=== PATIENT | female | born 1940 | race Caucasian/White ===

== ENCOUNTER 2019-03-10 00:49 | Emergency (ER) | payer MEDICARE, SELFPAY ==
[2019-03-10] VITALS (8 sets, daily range): BP systolic 110–159; BP diastolic 62–87; PULSE 64–68; RESP 16–18; TEMP 36.7; O2SAT 96–99; BMI 36.6
--- NOTE | 2019-03-10 00:54 | EKG12_ITS ---
Test Reason : STROKE Blood Pressure : / mmHG Vent. Rate : 066 BPM Atrial Rate : 066 BPM P-R Int : 168 ms QRS Dur : 092 ms QT Int : 404 ms P-R-T Axes : 079 -24 034 degrees QTc Int : 423 ms Normal sinus rhythm Normal ECG Confirmed by PANTERA DUTTON, ARMANI ([id number]), business editor TOD SCHOFIELD ([id number]) on 03/10/2019 2:54:25 PM Referred By: JUWAN Confirmed By:ARMANI MOTT MD
--- NOTE | 2019-03-10 00:54 | CT_ITS ---
We are attempting to reach an attending provider to discuss findings. An addendum with communication details will be sent when the communication is complete. STUDY: CT BRAIN WITHOUT CONTRAST REASON FOR EXAM: Female, 78 years old. Right-sided weakness, unable to speak. RADIATION DOSAGE (If Supplied By Facility): CTDIvol = ( 44.99 ) mGy, DLP = ( 779.24 ) mGycm TECHNIQUE: Transaxial CT imaging of the brain was performed without administration of intravenous contrast material. Individualized dose optimization techniques were used for this CT. COMPARISON: No relevant priors. FINDINGS: Normal soft tissue structures. Normal calvarium. There is mild cerebral atrophy with widening of the extra-axial spaces and ventricular dilatation. There are areas of decreased attenuation within the white matter tracts of the supratentorial brain, consistent with microvascular disease changes. There is small focus of CSF density left basal ganglia measuring approximately 6.4 mm consistent with old lacunar infarct. Remainder of the basal ganglia and thalami are normal. Small areas of CSF attenuation demonstrating and centrum semiovale and periventricular region. Normal brainstem. Normal cerebellum. There is no intracranial hemorrhage. There is high density involving the left middle cerebral artery which could represent very early dense MCA sign/early acute infarct. Normal visualized paranasal sinuses. CT/Brain/Head without Contrast IMPRESSION: Dense left middle cerebral artery which may indicate very early sign of acute stroke in the MCA distribution. If indicated, follow-up with MRI may further characterize this finding. No acute intracranial hemorrhage. Underlying atrophy along with microvascular angiopathic white matter disease. Electronically Signed: Shabnam Calvillo MD at 1:19 EST , Service support ,
--- NOTE | 2019-03-10 00:59 | ED.RN ---
NO OLD EKGS IN MUSE
[2019-03-10 01:12] LABS: Absolute Lymphocyte Count 3.85 X10^3/uL (0.83-4.51); Absolute Neutrophil Count 3.8 X10^3/uL (2.0-7.7); Basophil# 0.04 X10^3/uL; Basophil% 0.5 % (0-1); Eosinophil# 0.33 X10^3/uL; Eosinophils% 3.8 % (0-5); Hematocrit 38.2 % (37-47); Hemoglobin 13.1 g/dL (12.0-15.0); Lymphocyte # 3.85 X10^3/ul (4.0); Lymphocyte % 43.9 % (19-41); Mean Corp Hgb Conc 34.3 g/dL (32-36); Mean Corpuscular Volume 93.4 fL (81-99); Mean Platelet Vol. 10.2 fl (6.2-12.0); Monocyte# 0.68 X10^3/uL; Monocyte% 7.8 % (0-10); NRBC Flagged by Analyzer 0 % (0-5); Neutrophil # 3.84 X10^3/uL (2.7-7.7); Neutrophil % 43.8 % (47-70); Platelet Count 200 K/mm3 (150-450); RBC Distribution Width CV 12.5 % (11.6-14.6); Red Blood Count 4.09 M/mm3 (4.2-5.4); White Blood Count 8.8 K/mm3 (4.4-11.0)
[2019-03-10 01:16] LABS: International Normalized Ratio 0.9; Partial Thromboplast Time 26.1 Seconds (24.1-36.2); Prothrombin Time (Protime)PT. 12.3 SECONDS (11.7-14.9)
[2019-03-10 01:26] LABS: Anion Gap 6 (5-15); BUN 20 mg/dL (7-18); BUN/Creat Ratio 21.4 RATIO (10-20); Calcium,Total 9.2 mg/dL (8.5-10.1); Chloride 107 mmol/L (98-107); Creatinine, Serum 0.93 mg/dL (0.55-1.02); EST Glomerular Filtration Rate 62 mL/min (>60); Est Glom Filt Rate - Afr Amer 75 mL/min (>60); Glucose 129 mg/dL (74-106); Sodium Level 142 mmol/L (136-145)
--- NOTE | 2019-03-10 01:38 | ED.VIS.GEN ---
History of Present Illness Chief Complaint: Neuro S/Sx Informant: Patient, Family, Automotive Technician Narrative: Patient here with family member. According to family member the patient's called paramedics at 12:50 AM due to an acute stroke symptoms. Patient had acute onset of complete aphasia and right lower facial droop as well as confusion. No history of stroke. Patient stated no history of blood thinners. According to her medication list at [facility] there is no blood thinners recently filled. The patient is able to follow commands and answer questions with shaking her head but cannot speak. She has never had a stroke before. The patient has no contraindications to TPA at this time. She had no recent surgeries or trauma. She does have history of coronary artery disease and glaucoma as well as diabetes. She has a normal blood sugar for the paramedics. She is been able to move her arms and legs normally. Past Medical History - Allergies and Home Meds Allergies/Adverse Reactions: Allergies No Known Allergies Allergy (Verified 03/10/19 01:08) Primary Care Physician: Care Physician,No Primary [NON-STAFF] - Prior records reviewed: Yes Past Medical History: - - Diabetes, glaucoma, coronary artery disease Surgical History: - - Heart surgery Lives: With Family Smoking Status: Former smoker Alcohol: None Drugs: None Review of Systems General: Denies: Chills, Fever, Sweats Eyes: Denies: Visual changes - bilaterally, Diplopia ENT: Denies: Rhinorrhea, Sore throat Cardiovascular: Denies: Chest pain, Palpitations Respiratory: Denies: Dyspnea, Cough, Dyspnea on exertion Gastrointestinal: Denies: Abdominal pain, Nausea, Vomiting, Diarrhea, Melena, Hematochezia Genitourinary: Denies: Dysuria, Hematuria, Frequency Musculoskeletal: Denies: Back pain, Extremity Pain Skin: Denies: Rash, Wounds Neurological: Reports: Weakness, - - Not able to speak, right lower facial droop. Denies: Headache, Parasthesia, Numbness Physical Exam Vital Signs/Narrative: Vital Signs Temp Pulse Resp BP Pulse Ox 03/10/19 01:13 68 16 125/87 H 98 03/10/19 01:08 98.1 F 03/10/19 00:54 98.1 F 68 16 110/85 H 96 General: Well nourished, Well developed, No Acute Distress Head: Normocephalic, Atraumatic Eyes: Perrl, EOMI ENT: Moist mucous membranes, No rhinorrhea Neck: Supple, Nontender Cardiovascular: Regular rate, Regular rhythm, No murmurs Respiratory: No distress, CTA bilaterally, Chest nontender Abdomen: Soft, Nontender, Nondistended, Normal bowel sounds Back: Nontender, Normal Inspection Extremities: Nontender, No edema Skin: Normal color, No rash Neurological: Alert, - - Patient follows all commands. She does not appear lethargic. She has right lower facial droop that is significant. Patient has complete aphasia. She is able to answer questions with yes and no by nodding her head without verbalizing. She follows normal with [id number]. She is able to follow my finger with her eyes. She is unable to speak.. Negative for: Oriented x3, Cranial nerves II-XII grossly intact, Normal Strength, Normal Sensation Psychological: Normal affect, Normal Mood Diagnostic/Tx/Re-eval - Medical Decision Making EKG obtained shows sinus rhythm with no acute infarct. Rate is 66.. Lab work shows no major abnormalities. Platelets show no abnormality. Troponin negative. BUN is 20. CBC is normal. CT head shows evidence of an acute left-sided infarct with hyperdense sign noted. No hemorrhage. The patient meets criteria for TPA. Neurology evaluated the patient in the emergency department from [facility]. They concurred that the patient is a candidate for TPA. TPA was ordered will be given. [facility] stated the patient could be transferred there emergently. The patient would like the patient to be transferred to [facility]. [facility] does not have beds. Family would like the patient then to go to [facility]. Upon awaiting [facility] to respond the patient then stated that they would go to [facility]. We were able to get [facility] to accept the patient. [facility] is not flying. The patient will go by ground. Discussed doing a CT angio with [facility] stroke neurologist who stated hold off on this time and that they would do it at [facility] - Critical Care Time Critical care time (excluding procedures): 30-74 minutes ED Disposition - Plan for ED Patient: Disposition: [facility] Diagnosis: Stroke Referrals: Care Physician,No Primary [NON-STAFF] -
[2019-03-10] MEDS: 0.9% Normal Saline 1,000 ML 100 ML IV (01:46)
--- NOTE | 2019-03-10 01:50 | ED.RN ---
ACCEPTING DR RICHARD SORIA
== END 2019-03-10 02:37 | disposition short-term general hospital (02) ==
PROVIDERS: Emergency Provider Emergency Medicine; Family Provider Family Medicine; PCP Family Medicine
DX: I63.9 Cerebral infarction, unspecified (principal); R47.01 Aphasia; R29.810 Facial weakness; I25.10 Atherosclerotic heart disease of native coronary artery without angina pectoris; E11.9 Type 2 diabetes mellitus without complications; H40.9 Unspecified glaucoma; Z87.891 Personal history of nicotine dependence
CPT/HCPCS: 51702; 70450; 80048; 84484; 85025; 85610; 85730; 93005; 96365; 96376; 99285; J2997; J7030; A4216

== ENCOUNTER 2019-03-13 19:05 | Inpatient (IN) | payer MEDICARE, SELFPAY ==
[2019-03-10 01:08] VITALS: BMI 36.6
[2019-03-13 19:56] VITALS: BP 121/72; PULSE 67; RESP 18; TEMP 36.6; O2SAT 97; BMI 29.1
[2019-03-13 21:11] LABS: Bedside Glucose 118 mg/dL (70-110)
[2019-03-13] MEDS: Atorvastatin Calcium 10 MG Tablet PO (21:36)
[2019-03-14 05:59] LABS: Hematocrit 36.2 % (37-47); Hemoglobin 12.6 g/dL (12.0-15.0); Mean Corp Hgb Conc 34.8 g/dL (32-36); Mean Corpuscular Hgb 31.7 pg (27.0-32.0); Mean Corpuscular Volume 91.2 fL (81-99); Mean Platelet Vol. 9.9 fl (6.2-12.0); Platelet Count 175 K/mm3 (150-450); RBC Distribution Width CV 12.2 % (11.6-14.6); RBC Distribution Width SD 40.2 fl (35.1-43.9); Red Blood Count 3.97 M/mm3 (4.2-5.4); White Blood Count 6.7 K/mm3 (4.4-11.0)
[2019-03-14 06:15] LABS: AST(SGOT) 18 U/L (15-37); Alanine Aminotransfer ALT/SGPT 19 U/L (13-56); Albumin, Serum 3.4 g/dL (3.2-5.0); Alkaline Phosphatase 48 U/L (45-117); Anion Gap 6 (5-15); BUN 14 mg/dL (7-18); BUN/Creat Ratio 16.9 RATIO (10-20); Calcium,Total 8.6 mg/dL (8.5-10.1); Chloride 108 mmol/L (98-107); Creatinine, Serum 0.83 mg/dL (0.55-1.02); EST Glomerular Filtration Rate 71 mL/min (>60); Est Glom Filt Rate - Afr Amer 86 mL/min (>60); Estimated Creatinine Clearance 58.17 ml/min; Globulin 3.4 g/dL (2.2-4.2); Glucose 121 mg/dL (74-106); Potassium 3.5 mmol/L (3.5-5.1); Protein, Total 6.8 g/dL (6.4-8.2); Sodium Level 140 mmol/L (136-145)
[2019-03-14 06:26] LABS: Bedside Glucose 118 mg/dL (70-110)
--- NOTE | 2019-03-14 06:44 | HP.PCM_ITS ---
Problem List (1) CVA (cerebral vascular accident) Status: Acute Qualifiers: Laterality of affected vessel: left Comment: Left MCA territory ischemic infarcts 03/10/19 (2) Debility Status: Acute (3) CAD (coronary artery disease) Status: Chronic Qualifiers: Coronary Disease-Associated Artery/Lesion type: [place] artery (4) Type 2 diabetes mellitus Status: Chronic (5) Tobacco dependence in remission Status: Chronic (6) History of cervical cancer Status: Chronic (7) History of coronary artery bypass graft Status: Chronic (8) Carotid stenosis, bilateral Status: Chronic Comment: both ICA's are 100% occluded (9) Low HDL (under 40) Status: Chronic (10) Glaucoma Status: Chronic History of Present Illness Date of Admission: 03/13/19 Chief Complaint: debility secondary to CVA in the L MCA territory on 03/10/19 The patient is a 78 year old F with a PMH of DM II, dyslipidemia, CAD, hx of CABG, tobacco dependence in remission, glaucoma, history of cervical cancer, low HDL and 100% bilateral internal carotid artery stenosis who presented to the emergency department at [facility] on 03/10/2019 with aphasia and R lower face droop. Stat CT brain showed dense left middle cerebral artery possibly indicating very early sign of acute CVA in the MCA distribution. There was no intracranial hemorrhage. STAT consult was obtained with neurology at [facility] and the patient was administered TPA. She was then transferred to [facility] for ongoing care. MRI at [facility] showed nonhemorrhagic acute-subacute left MCA territory infarcts. She was started on aspirin 81 mg daily for antithrombotic therapy. Lipid panel showed normal triglycerides, low HDL at 31 and an LDL of 68. Anticoagulation therapy was not indicated. CTA showed 100% occlusion of both internal carotid arteries with collateral circulation. Over the course of her stay at [facility] her symptoms largely improved and her NIH score on 03/13/2019 was 4. She was transferred to the IPRU at [facility] on 03/13/19 for 3 hours of therapy daily with a goal of returning home at or near her prior level of independence/function. All events of the past 24 hours of been reviewed. She is afebrile. Blood pressure is well controlled and the heart rate is within normal limits. She is maintaining appropriate oxygen saturation on room air without tachypnea. All lab was personally reviewed. CBC is within normal limits. BMP is unremarkable. Hemoglobin A1c is only 5.4. Blood sugars have been very well controlled on metformin 850 mg twice daily since arrival at [facility]. Past Medical History Past Medical History (Chronic Problems): Chronic Problems CAD (coronary artery disease) (Chronic) Type 2 diabetes mellitus (Chronic) Tobacco dependence in remission (Chronic) History of cervical cancer (Chronic) History of coronary artery bypass graft (Chronic) Carotid stenosis, bilateral (Chronic) both ICA's are 100% occluded Low HDL (under 40) (Chronic) Glaucoma (Chronic) Allergies No Known Allergies Allergy (Verified 03/10/19 01:08) Home Medications: Ambulatory Orders Medication Instructions Recorded Atenolol [Tenormin (beta carmelo)] 25 mg PO DAILY 03/13/19 Atorvastatin Calcium [Lipitor] 10 mg PO QHS 03/13/19 Fluoxetine HCl 20 mg PO DAILY 03/13/19 Lisinopril 5 mg PO DAILY 03/13/19 Metformin HCl 850 mg PO BIDAC 03/13/19 Pantoprazole Sodium [Protonix] 20 mg PO DAILY 03/13/19 Surgical History: - - CABG Psychiatric History: Depression 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 Denies: Confusion, Difficulty swallowing, Seizures Psychiatric: Denies: Homicidal Ideations, Suicidal Ideations Hematologic/ Lymphatic: Denies: Hx of blood clot Unable to obtain accurate/complete ROS d/t: ROS limited by aphasia...she is able to answer yes and no appropriately VTE Information - Inpt Only VTE Present on Admission: No VTE Mechan Device Prophylaxis: Knee High TIM Hose VTE Pharm Prophylaxis ordered?: Yes Patient Problems: Active and Suspected Problems CVA (cerebral vascular accident) (Acute) Left MCA territory ischemic infarcts 03/10/19 Debility (Acute) - Physical Exam Vitals/I&O's: Vital Signs Temp Pulse Resp BP Pulse Ox 97.8 F 67 18 121/72 H 97 03/13/19 19:56 03/13/19 19:56 03/13/19 19:56 03/13/19 19:56 03/13/19 19:56 Oxygen Delivery Method Room Air Weight: 191 lb 9.307 oz Body Mass Index (BMI) 29.1 Finger Stick Blood Glucose 125 Intake and Output for Last 24 Hours 03/12/19 03/13/19 03/14/19 23:59 23:59 23:59 Output Total 300 / 300 Balance -300 / -300 General: Alert, Cooperative, No apparent distress, Well developed, Well nourished, - - she is unable to tell me the month or year or how old she is due to aphasia HEENT: Atraumatic, PERRLA, EOMI, Normocephalic Oral: Moist Mucosa, No Gingival or Mucosal Lesions/ Ulcerations Neck: Supple, No JVD, No Nodes, No Nuchal Rigidity, Trachea Midline, Carotid Bruits, Bilateral Lungs: Clear to auscultation, Normal air movement, No rhonchi, No wheeze, No rales Cardiovascular: Regular rate, Regular Rhythm, Normal S1, Normal S2, No murmurs, No Ectopic Activity, No rub noted, No Gallop Abdomen: Bowel Sounds Present, Soft, Non Tender, Non-Distended Extremities: No clubbing, No cyanosis, No edema, Capillary Refill Less than 3 Seconds, No Calf Tenderness, Peripheral Pulses Normal Skin: No rashes, No breakdown Musculoskeletal: No Tenderness to Palpation of Joints or Extremities, No Muscle Wasting, - - no red or swollen joints Neurological: Cranial nerves II-XII grossly intact - I did not appreciate a facial droop. she has expressive> receptive aphasia, Neuro grossly intact Psych/Mental Status: Normal Affect, Appropriate Laboratory Results 03/13/19 21:08: POC Glucose 118 H 03/14/19 05:44: WBC 6.7, RBC 3.97 L, Hgb 12.6, Hct 36.2 L, MCV 91.2, MCH 31.7, MCHC 34.8, RDW Std Deviation 40.2, RDW Coeff of Aruna 12.2, Plt Count 175, MPV 9.9 03/14/19 05:44: Sodium 140, Potassium 3.5, Chloride 108 H, Carbon Dioxide 26.0, Anion Gap 6, BUN 14, Creatinine 0.83, Estim Creat Clear Calc 58.17, Est GFR (MDRD) Af Amer 86, Est GFR (MDRD) Non-Af 71, BUN/Creatinine Ratio 16.9, Glucose 121 H, Calcium 8.6, Total Bilirubin 0.70, AST 18, ALT 19, Alkaline Phosphatase 48, Total Protein 6.8, Albumin 3.4, Globulin 3.4, Albumin/Globulin Ratio 1.0 03/14/19 05:44: Hemoglobin A1c Pending 03/14/19 06:19: POC Glucose 118 H Current Medications Acetaminophen (Tylenol) 650 mg PO Q6H PRN PRN PRN Reason: Pain Score 1-10/10 /Headache Atorvastatin Calcium (Lipitor) 10 mg PO QHS [facility] Last Admin: 03/13/19 21:36 Dose: 10 mg Documented by: Bisacodyl (Dulcolax) 10 mg RECTAL .PRN X 1 PRN PRN Reason: Constipation Fluoxetine HCl (Prozac) 20 mg PO DAILY ANNEMARIE Lisinopril (Zestril) 5 mg PO DAILY ANNEMARIE Lorazepam (Ativan) 0.5 mg PO QHS PRN PRN PRN Reason: Insomnia Magnesium Hydroxide (Milk Of Magnesia) 30 ml PO .PRN X 1 PRN PRN Reason: Constipation Metformin HCl (Glucophage) 850 mg PO BIDAC ANNEMARIE Pantoprazole Sodium (Protonix) 20 mg PO DAILY ANNEMARIE Senna/Docusate Sodium (Senokot-S, Lorena-Colace) 2 tablet PO BID [facility] Last Admin: 03/14/19 00:19 Dose: Not Given Documented by: Assessment/Plan All Active Problems CVA (cerebral vascular accident) (Acute) Debility (Acute) Impressions 1. Debility secondary to recent ischemic CVA in the left MCA territory with aphasia 2. Ischemic CVA left MCA territory on 03/10/2019-received TPA at [facility] emergency department and transferred to [facility] for further evaluation 3. Carotid stenosis with 100% occlusion of both internal carotid arteries with collateral circulation-no plan for intervention 4. Type 2 diabetes mellitus-hemoglobin A1c is 5.4 which is too low for a patient of this age. She does not check her blood sugars at home. Will monitor closely and may be able to decrease metformin dosage 5. Low HDL 6. Coronary artery disease with history of CABG 7. 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 Glaucoma 9. Hypertension 10. hx of cervical CA 11. Depression - on Prozac The pt is a 78-year-old female with a PMH of hypertension, low HDL, diabetes mellitus type 2, coronary artery disease, history of CABG, history of cervical cancer and glaucoma? (on no meds) admitted to the Inpatient rehab unit at [facility] on 03/13/2019 for debility secondary to recent ischemic CVA in the left MCA territory with a aphasia for greater than 3 hours of therapy daily with a goal of returning home at or near prior level of independence. The patient lives at home with her and has 3 steps. The patient was independent with ADL's, mobility and driving prior to hospitalization. PLAN PT for gait stability OT for ADL's ST for evaluation Analgesics as needed Bowel protocol Fall precautions Assess for Anxiety/Depression GI prophylaxis with pantoprazole DVT prophylaxis with enoxaparin Follow up with neurology and Dr. Puga following DC from IP Rehab Code Visit Inpatient E&M: 76989 Init Hosp L3
--- NOTE | 2019-03-14 06:50 | REHABEVAL_ITS ---
Admission Information Primary Diagnosis:: debility due ischemic CVA Status Changes from Prescreening?: No changes Identified Actual Problem List:: Cognitve Impr/Memory Loss, Depression, Self Care Deficit, Ineffective Communication, Alteration-Leisure Activ. Potential Problem List:: DVT, Infection, UTI, Aspiration, Falls, Skin Integrity, Depression Risk of Complications DVT: LMWH, TIM Hose Bleeding: Monitor Lab Values, Nursing to Teach Precautions for anti-coagulation therapy., Wound, if applicable, to be assessed every shift., Stroke patients assessed for lethargy or change in status. Infection: Clinical Staff to Monitor for S/S of infection:, S/S of infection include fever, redness, warmth, etc. Urinary Tract Infection: Monitor for frequency, burning, discomfort, or incontinence., Nursing will obtain urine sample for urinalysis and C&S when ordered. Aspiration: Clinical staff will monitor for coughing, drooling, congestion., Speech will evaluate swallowing and dsyphasia., Nursing will monitor patient swallowing during meals. Falls: Patient will be evaluated for Fall Precautions, Patient will be placed on Fall Precautions as indicated per protocol. Skin Breakdown: Nursing will assess skin daily using assessment tool., Nursing will place on Skin Breakdown Precautions as indicated. Pain: Clinical staff will assess patient's pain level per protocol., Medications will be given, if needed, and the pain level reassessed., Other methods: Ma ssage, distraction, decrease stimulus, etc. used PRN. Plan of Care Patient requires physician specializing in physical medicine and rehab oversight to provide close medical supervision of rehab issues including: Pain Management, Sleep Problems, Bowel and Bladder, Medical and co-morbidity Management, DVT prophylaxis, Rehabilitation Leadership, Coordination of treatment team Patient needs Physical Therapy: For a minimum of 1 hour, At least 5 out of 7 days Patient needs Physical Therapy to improve:: Mobility, Mobility, Mobility, Strengthening, Transfers, Stretching, ROM, Endurance, Stairs, Gait, Balance Patient needs Occupational Therapy: For a minimum of 1 hour, At least 5 out of 7 days Patient needs Occupational Therapy to improve ADL's incl.: Eating, Grooming, Bathing, Dressing, Toileting, Toilet transfers, Community Reintegration, Higher functioning activities, Household tasks, Adaptive Equipment, Splinting, Other activities as determined Patient requires speech therapy: For a minimum of 1 hour, At least 5 out of 7 days Patient requires speech therapy for: Swallowing, Cognition, Language Skills, Compensatory Strategies Patient requires 24/7 Rehabilitation Nursing for: Pain Issues, Identifying and preventing risk factors, Monitoring and reporting current medical conditions, Assisting with ambulation, transfer, and all ADL's, Teaching patients about disease process and medications, Family teaching, Providing safe environment, Bowel and Bladder Issues, Skin integrity, Medication Management Patient needs Advanced Solutions Architect/ Case Management for: Discharge Planning, Arranging Home Equipment or Services, Family Interventions Patient needs Dietary and Nutrition Services for: Adequate Nutrition, Nutritional Supplements, Nutritional Education Goals Patient will remain: free from falls, or injury at time of discharge. Patient will perform bed mobility at: MOD I level of assist. Patient will complete transfers from bed to chair at: MOD I level of assist. Patient will ambulate: 100 feet, with MOD I assist, with LRD Patient will complete upper body dressing at: MOD I level of assist. Patient will complete lower body dressing at: MOD I level of assist. Patient will complete toileting at: MOD I level of assist. Patient will perform bathing at: MOD I level of assist. Patient will complete grooming at: MOD I level of assist. Patient will complete home management skills at: MOD I level of assist. Patient will achieve: 12 stairs, at MOD I assist Patient will have pain level of: of 3 or less Patient's skin will: remain intact, free from infection. Patient will receive: adequate nutrition. Discharge Planning Pt Prognosis for Sig. Practical Improv. w/in Reasonable Time: Good Estimated Length of stay (days): 28 Anticipated D/C Destination: Home Was Preadmission Assessment Accurate?: Yes
[2019-03-14 07:00] VITALS: BP 116/58; PULSE 66; RESP 18; TEMP 36.6; O2SAT 95
[2019-03-14 07:23] LABS: Hemoglobin A1c 5.4 % (4.2-6.3)
[2019-03-14] MEDS: Lisinopril 5 MG Tablet PO (07:42)
[2019-03-14] MEDS: FLUoxetine 20 MG Capsule PO (07:42)
[2019-03-14] MEDS: metFORMIN HCl 850 MG Tablet PO ×2 (07:43→17:04)
[2019-03-14] MEDS: Pantoprazole Sodium 20 MG Tablet PO (07:43)
[2019-03-14 07:55] VITALS: O2SAT 94
[2019-03-14 12:10] LABS: Bedside Glucose 129 mg/dL (70-110)
[2019-03-14] MEDS: Aspirin 81 MG TAB.CHEW PO (14:03)
[2019-03-14 16:55] LABS: Bedside Glucose 128 mg/dL (70-110)
[2019-03-14 19:42] VITALS: BP 130/64; PULSE 78; RESP 18; TEMP 37.1; O2SAT 96
[2019-03-14 21:06] LABS: Bedside Glucose 111 mg/dL (70-110)
[2019-03-14] MEDS: Atorvastatin Calcium 10 MG Tablet PO (21:55)
[2019-03-15 03:24] VITALS: BMI 29.1
[2019-03-15] MEDS: Enoxaparin 40 MG/0.4 ML Syringe SC (06:38)
[2019-03-15 06:45] LABS: Bedside Glucose 120 mg/dL (70-110)
[2019-03-15 08:06] VITALS: BP 126/74; PULSE 77; RESP 18; TEMP 36.9; O2SAT 96
[2019-03-15] MEDS: Aspirin 81 MG TAB.CHEW PO (09:20)
[2019-03-15] MEDS: metFORMIN HCl 850 MG Tablet PO ×2 (09:20→16:59)
[2019-03-15] MEDS: Pantoprazole Sodium 20 MG Tablet PO (09:20)
[2019-03-15] MEDS: Lisinopril 5 MG Tablet PO (09:21)
[2019-03-15] MEDS: FLUoxetine 20 MG Capsule PO (09:21)
[2019-03-15] MEDS: Senna/Docusate Sodium 1 Tablet 2 TABLET PO ×2 (09:21→21:41)
[2019-03-15 12:15] LABS: Bedside Glucose 96 mg/dL (70-110)
[2019-03-15 15:08] VITALS: O2SAT 94
[2019-03-15 15:58] VITALS: BMI 29.1
[2019-03-15 17:55] LABS: Bedside Glucose 114 mg/dL (70-110)
[2019-03-15 19:31] VITALS: BP 155/63; PULSE 88; RESP 16; TEMP 36.9; O2SAT 97
[2019-03-15] MEDS: Atorvastatin Calcium 10 MG Tablet PO (21:41)
[2019-03-15 21:45] LABS: Bedside Glucose 122 mg/dL (70-110)
[2019-03-16 05:20] VITALS: BMI 29.1
[2019-03-16] MEDS: Enoxaparin 40 MG/0.4 ML Syringe SC (05:26)
[2019-03-16 07:05] LABS: Bedside Glucose 119 mg/dL (70-110)
[2019-03-16 07:26] VITALS: BP 136/71; PULSE 77; RESP 16; TEMP 36.4; O2SAT 95
[2019-03-16] MEDS: Aspirin 81 MG TAB.CHEW PO (07:43)
[2019-03-16] MEDS: Lisinopril 5 MG Tablet PO (07:43)
[2019-03-16] MEDS: metFORMIN HCl 850 MG Tablet PO ×2 (07:43→17:23)
[2019-03-16] MEDS: FLUoxetine 20 MG Capsule PO (07:43)
[2019-03-16] MEDS: Pantoprazole Sodium 20 MG Tablet PO (07:43)
[2019-03-16 08:11] VITALS: O2SAT 94
[2019-03-16 09:43] VITALS: BMI 29.1
[2019-03-16 11:56] LABS: Bedside Glucose 114 mg/dL (70-110)
[2019-03-16 17:01] LABS: Bedside Glucose 112 mg/dL (70-110)
[2019-03-16] MEDS: Atorvastatin Calcium 10 MG Tablet PO (20:14)
[2019-03-16 20:15] VITALS: BP 113/76; PULSE 85; RESP 16; TEMP 37; O2SAT 95; BMI 29.1
[2019-03-16 21:40] LABS: Bedside Glucose 115 mg/dL (70-110)
--- NOTE | 2019-03-17 01:51 | NURSING ---
Reviewed and agree with CLEANER WALL documentation and charting.
[2019-03-17] MEDS: Enoxaparin 40 MG/0.4 ML Syringe SC (05:06)
[2019-03-17 06:56] LABS: Bedside Glucose 122 mg/dL (70-110)
[2019-03-17 07:56] VITALS: BP 144/74; PULSE 98; RESP 16; TEMP 36.8; O2SAT 93
[2019-03-17] MEDS: Aspirin 81 MG TAB.CHEW PO (07:59)
[2019-03-17] MEDS: FLUoxetine 20 MG Capsule PO (07:59)
[2019-03-17] MEDS: metFORMIN HCl 850 MG Tablet PO ×2 (07:59→16:32)
[2019-03-17] MEDS: Lisinopril 5 MG Tablet PO (07:59)
[2019-03-17] MEDS: Pantoprazole Sodium 20 MG Tablet PO (07:59)
[2019-03-17 12:01] LABS: Bedside Glucose 98 mg/dL (70-110)
[2019-03-17 12:42] VITALS: BMI 29.1
[2019-03-17 16:40] LABS: Bedside Glucose 113 mg/dL (70-110)
--- NOTE | 2019-03-17 17:48 | CASEMGMT ---
Social Work PHQ-9 completed. Score 0. Jenni Landon, ENGLISH ADJUNCT FACULTY SENIOR AUDIT MANAGER
[2019-03-17] MEDS: Atorvastatin Calcium 10 MG Tablet PO (20:58)
[2019-03-17 21:31] LABS: Bedside Glucose 133 mg/dL (70-110)
[2019-03-17 22:00] VITALS: BP 132/52; PULSE 90; RESP 16; RESP 18; TEMP 36.7; O2SAT 96; O2SAT 97; BMI 29.1
[2019-03-18] MEDS: Enoxaparin 40 MG/0.4 ML Syringe SC (06:08)
[2019-03-18 06:40] LABS: Bedside Glucose 139 mg/dL (70-110)
[2019-03-18] MEDS: Aspirin 81 MG TAB.CHEW PO (08:36)
[2019-03-18] MEDS: Lisinopril 5 MG Tablet PO (08:36)
[2019-03-18] MEDS: metFORMIN HCl 850 MG Tablet PO (08:36)
[2019-03-18] MEDS: FLUoxetine 20 MG Capsule PO (08:36)
[2019-03-18] MEDS: Pantoprazole Sodium 20 MG Tablet PO (08:36)
[2019-03-18 09:32] VITALS: BP 124/61; PULSE 89; RESP 16; TEMP 37.3; O2SAT 97
[2019-03-18 12:10] LABS: Bedside Glucose 107 mg/dL (70-110)
--- NOTE | 2019-03-18 14:16 | PN_ITS ---
Patient Problems: Active and Suspected Problems CVA (cerebral vascular accident) (Acute) Left MCA territory ischemic infarcts 03/10/19 Debility (Acute) Subjective: Afebile VSS Maintaining appropriate oxygen saturation on RA Oral intake is fair. Discussed with nursing - no problems that need addressed Reviewed the PT/OT/ST notes Medication list reviewed. Pt tells me that she would like to go home. I explained we will discuss this at team meeting on and she is OK with this. she seems to be progressing well. Denies SOB, CP, nausea, abd pain. Bowels are working well. No cough. - Physical Exam Vitals/I&O's: Vital Signs Temp Pulse Resp BP Pulse Ox 99.2 F H 89 16 124/61 H 97 03/18/19 09:32 03/18/19 09:32 03/18/19 09:32 03/18/19 09:32 03/18/19 09:32 Oxygen Delivery Method Room Air Weight: 191 lb 9.307 oz Body Mass Index (BMI) 29.1 Finger Stick Blood Glucose 125 Intake and Output for Last 24 Hours 03/16/19 03/17/19 03/18/19 23:59 23:59 23:59 Intake Total 700 / 700 240 / 240 600 / 600 Balance 700 / 700 240 / 240 600 / 600 General: Alert, Oriented x3 - using verbal communication and gestures. Able to follow my commands for deep breath, protrude tongue, etc., Cooperative, No apparent distress HEENT: Atraumatic, PERRLA, EOMI, Normocephalic Oral: Moist Mucosa, No Gingival or Mucosal Lesions/ Ulcerations Neck: Supple, No JVD, No Nodes, Trachea Midline Lungs: Clear to auscultation, Normal air movement Cardiovascular: Regular rate, Regular Rhythm, Normal S1, Normal S2, No Gallop Abdomen: Bowel Sounds Present, Soft, Non Tender, Non-Distended, - - No guarding with palpation Extremities: No edema Skin: No rashes Neurological: Cranial nerves II-XII grossly intact, Neuro grossly intact, - - still with expressive aphasia, trouble word finding Psych/Mental Status: Normal Affect, Appropriate Laboratory Results 03/17/19 16:33: POC Glucose 113 H 03/17/19 21:21: POC Glucose 133 H 03/18/19 06:12: POC Glucose 139 H 03/18/19 12:04: POC Glucose 107 Current Medications Acetaminophen (Tylenol) 650 mg PO Q6H PRN PRN PRN Reason: Pain Score 1-01/16 /Headache Aspirin (Aspirin, Baby) 81 mg PO DAILY@0800 [facility] Last Admin: 03/18/19 08:36 Dose: 81 mg Documented by: Atorvastatin Calcium (Lipitor) 10 mg PO QHS [facility] Last Admin: 03/17/19 20:58 Dose: 10 mg Documented by: Bisacodyl (Dulcolax) 10 mg RECTAL .PRN X 1 PRN PRN Reason: Constipation Enoxaparin Sodium (Lovenox) 40 mg SC DAILY@0600 [facility] Last Admin: 03/18/19 06:08 Dose: 40 mg Documented by: Fluoxetine HCl (Prozac) 20 mg PO DAILY [facility] Last Admin: 03/18/19 08:36 Dose: 20 mg Documented by: Lisinopril (Zestril) 5 mg PO DAILY [facility] Last Admin: 03/18/19 08:36 Dose: 5 mg Documented by: Lorazepam (Ativan) 0.5 mg PO QHS PRN PRN PRN Reason: Insomnia Magnesium Hydroxide (Milk Of Magnesia) 30 ml PO .PRN X 1 PRN PRN Reason: Constipation Metformin HCl (Glucophage) 850 mg PO BIDAC [facility] Last Admin: 03/18/19 08:36 Dose: 850 mg Documented by: Nutritional Formula (Lactose Free) (Glucerna Shake) 120 ml PO 4X/DAY [facility] Last Admin: 03/18/19 13:41 Dose: Not Given Documented by: Pantoprazole Sodium (Protonix) 20 mg PO DAILY [facility] Last Admin: 03/18/19 08:36 Dose: 20 mg Documented by: Senna/Docusate Sodium (Senokot-S, Lorena-Colace) 2 tablet PO BID [facility] Last Admin: 03/18/19 08:37 Dose: Not Given Documented by: Medical Necessity - Tobacco Use Smoking Status: Former smoker Tobacco Use: Non-smoker Assessment/Plan All Active Problems CVA (cerebral vascular accident) (Acute) Debility (Acute) Impressions 1. Debility secondary to recent ischemic CVA in the left MCA territory with aphasia, primarily expressive 2. Ischemic CVA left MCA territory on 03/10/2019-received TPA at [facility] emergency department and transferred to [facility] for further evaluation 3. Carotid stenosis with 100% occlusion of both internal carotid arteries with collateral circulation-no plan for intervention 4. Type 2 diabetes mellitus-hemoglobin A1c is 5.4 which is too low for a patient of this age. She does not check her blood sugars at home. BS record shows good control of the blood sugars with no hypoglycemia. I am going to decrease the Metformin to 500 mg BID because a HGBA1C of < 6% is too low for this pt. Will make sure she has a glucometer at [place] and that she will check Blood sugars 1-2 times a day at different times. Will encourage her to follow up with Dr. Pappas at [place] 5. Low HDL 6. Coronary artery disease with history of CABG 7. 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 Glaucoma 9. Hypertension 10. hx of cervical CA 11. Depression - on Prozac....mood is upbeat and she is actively participating in therapy and anxious to get better. No signs of frustration. Code Visit Inpatient E&M: 44498 Subs Hosp L2
[2019-03-18 17:00] VITALS: BMI 29.1
[2019-03-18 17:00] LABS: Bedside Glucose 104 mg/dL (70-110)
[2019-03-18] MEDS: metFORMIN HCl 500 MG Tablet PO (17:41)
[2019-03-18 20:22] VITALS: BP 150/79; PULSE 100; RESP 18; TEMP 36.7; O2SAT 95
[2019-03-18] MEDS: Atorvastatin Calcium 10 MG Tablet PO (20:29)
--- NOTE | 2019-03-18 20:31 | NURSING ---
22:00 meds provided early per pt request for uninterrupted early bedtime.
[2019-03-18 20:32] VITALS: BMI 29.1
[2019-03-18 20:43] VITALS: PULSE 100; RESP 16; O2SAT 94
[2019-03-18 21:31] LABS: Bedside Glucose 132 mg/dL (70-110)
[2019-03-19] MEDS: Enoxaparin 40 MG/0.4 ML Syringe SC (06:28)
[2019-03-19 06:55] LABS: Bedside Glucose 133 mg/dL (70-110)
[2019-03-19] MEDS: Aspirin 81 MG TAB.CHEW PO (07:38)
[2019-03-19] MEDS: metFORMIN HCl 500 MG Tablet PO ×2 (07:38→16:35)
[2019-03-19] MEDS: Lisinopril 5 MG Tablet PO (07:38)
[2019-03-19] MEDS: Pantoprazole Sodium 20 MG Tablet PO (07:38)
[2019-03-19] MEDS: FLUoxetine 20 MG Capsule PO (07:39)
[2019-03-19 08:09] VITALS: BP 128/69; PULSE 84; RESP 16; TEMP 36.3; O2SAT 94
[2019-03-19 12:00] LABS: Bedside Glucose 102 mg/dL (70-110)
[2019-03-19 13:32] VITALS: BMI 29.1
--- NOTE | 2019-03-19 13:49 | PN_ITS ---
Progress Note Afebrile Vital signs stable Maintaining appropriate oxygen saturation on room air Blood sugars are very well controlled, even with the decrease in the metformin. no hypoglycemia. The ST was able to find out from the patients daughter that she does not check BS's at home. Her Grandson is going to live with her and maybe he can be taught to do the accuchecks. I suspect she has been having low blood sugars at home that have gone unrecognized. PHYSICAL EXAM: GENERAL: alert, oriented X 3, Cooperative, NAD ORAL: moist mucosa, no mucosal lesions NECK: No JVD, supple, trachea midline LUNGS: CTA, symmetric chest expansion HEART: RRR, Normal S1 and S2, no rub, no gallop ABDOMEN: soft, NT, ND, BS present, no guarding with palpation EXTREMITIES: no edema, no cyanosis, no calf tenderness SKIN: No rashes, no breakdown NEUROLOGIC: no focal neurologic deficits PSYCH: appropriate, normal affect, pleasant Impressions 1. Debility secondary to recent ischemic CVA in the left MCA territory with expressive aphasia - improving 2. DM II - HGBA1C at admission was too low at 5.4. Likely getting hypoglycemic at home. Metformin has been decreased. will encourage BID accuchecks when she is discharged and follow up with Dr. Pappas. Will discuss potential DC date at Team meeting in the AM Code Visit Inpatient E&M: 19874 [facility] Hosp L1
[2019-03-19 16:40] LABS: Bedside Glucose 125 mg/dL (70-110)
[2019-03-19] MEDS: Atorvastatin Calcium 10 MG Tablet PO (19:51)
[2019-03-19 22:00] VITALS: BP 130/80; PULSE 91; RESP 16; TEMP 37.1; O2SAT 94
[2019-03-19 23:56] LABS: Bedside Glucose 122 mg/dL (70-110)
[2019-03-19 23:58] VITALS: BMI 29.1
--- NOTE | 2019-03-20 03:19 | NURSING ---
REVIEWED AND AGREE WITH INTERNAL [employer]OLS SPECIALIST'S FUNCTIONAL ASSESSMENT AND HANDOFF CHARTING.
[2019-03-20] MEDS: Enoxaparin 40 MG/0.4 ML Syringe SC (06:31)
[2019-03-20] MEDS: metFORMIN HCl 500 MG Tablet PO (06:36)
[2019-03-20 06:46] LABS: Bedside Glucose 145 mg/dL (70-110)
[2019-03-20 07:00] VITALS: BP 152/75; PULSE 88; RESP 16; TEMP 36.8; O2SAT 93
[2019-03-20] MEDS: FLUoxetine 20 MG Capsule PO (08:09)
[2019-03-20] MEDS: Lisinopril 5 MG Tablet PO (08:09)
[2019-03-20] MEDS: Pantoprazole Sodium 20 MG Tablet PO (08:10)
[2019-03-20] MEDS: Aspirin 81 MG TAB.CHEW PO (08:10)
--- NOTE | 2019-03-20 11:06 | DCINST_ITS ---
- Discharge Diagnoses Current Active Problems: Current Active and Chronic Problems CVA (cerebral vascular accident) (Acute) Left MCA territory ischemic infarcts 03/10/19 Debility (Acute) CAD (coronary artery disease) (Chronic) Type 2 diabetes mellitus (Chronic) Tobacco dependence in remission (Chronic) History of cervical cancer (Chronic) History of coronary artery bypass graft (Chronic) Carotid stenosis, bilateral (Chronic) both ICA's are 100% occluded Low HDL (under 40) (Chronic) Glaucoma (Chronic) You will use the following diet at home:: Calorie/Carbohydrate Controlled (specify 1200, 1400, etc) - 1800 calorie diet, low fat and low salt, Cardiac Your food should be the consistency of: Soft (bite-sized & easy to chew/swallow) Your liquids should be the consistency of: Regular/Thin Discharge Activity: Return to Normal Activity Weight Bearing Status: Full weight bearing Call your doctor if you observe: Fever of 101 or Higher, Inability to urinate, Shortness of breath, Dizziness, Fainting spells, Swelling in the ankles, Chest pain, Increased palpitations (irregular heartbeat), Calf discomfort Instructions: Hypoglycemia (Low Blood Sugar) Additional Instructions: 1. I want you to check the blood sugar twice a day and keep a record. Check your blood sugar before breakfast and before supper. 2. You MUST eat 3 meals a day!!! This will help prevent the low blood sugars you were having at home. If you get sweaty, nauseated, weak and sleepy your blood sugar is probably low.......drink some juice, eat some peanut butter crackers or a piece of candy to get the blood sugar up. It is best to eat something that has protein in it to keep the blood sugar up. 3. Low blood sugars are more dangerous for you than an occasional high blood sugar. Your HGBA1C in the hospital was only 5.4 and I would like to see it between 7 and 7.5. I decreased the Metformin dose to 500 mg twice a day and I have given you a Prescrition for the new dose. I also am giving you a prescription for a glucometer in case you do not have 1 at home. 4. HAPPY HOLIDAYS!!! It was a pleasure meeting you. You worked hard and your lab is looking very good. I think you will have continued improvement. Allergies/Adverse Reactions: Allergies No Known Allergies Allergy (Verified 12/02/19 01:08) Medications to take at Discharge Atenolol [Tenormin (beta carmelo)] 25 mg PO DAILY 03/13/19 Atorvastatin Calcium [Lipitor] 10 mg PO QHS 03/13/19 Fluoxetine HCl 20 mg PO DAILY 03/13/19 Lisinopril 5 mg PO DAILY 03/13/19 Pantoprazole Sodium [Protonix] 20 mg PO DAILY 03/13/19 Aspirin [Aspirin, Baby] 81 mg PO DAILY@0800 tab.chew 03/20/19 metFORMIN HCl [Glucophage] 500 mg PO BIDAC #60 tablet 03/20/19 The following prescriptions were given: metFORMIN HCl [Glucophage] 500 mg PO BIDAC #60 tablet Orders to be completed after discharge: Glucometer Location: None Selected Speech Therapy Evaluation Location: None Selected Primary Care Physician: Saurabh Puga MD [Primary Care Provider] - Please follow up with your Primary Care Physician in: 1 week Test Results: Test results from this visit will be discussed in further detail at your follow- up appointment, if applicable. Please Follow Up With: Dr Kennedy Please Follow Up With: Dr Reed Pappas When: Call to make appointment Proposed Discharge Date: 03/20/19
--- NOTE | 2019-03-20 11:31 | PCM.DC.SUM ---
Discharge Date and Diagnosis - Problem List Patient Problems: Active and Suspected Problems Aphasia due to acute cerebrovascular accident (CVA) (Acute) CVA (cerebral vascular accident) (Acute) Left MCA territory ischemic infarcts 03/10/19 Debility (Acute) Date of Admission: 03/13/19 Date of Discharge: 03/20/19 - Primary Discharge Diagnosis Active and Suspected Problems Aphasia due to acute cerebrovascular accident (CVA) (Acute) CVA (cerebral vascular accident) (Acute) Left MCA territory ischemic infarcts 03/10/19 Debility (Acute) due to CVA - Secondary Discharge Diagnosis Chronic Problems CAD (coronary artery disease) (Chronic) Type 2 diabetes mellitus (Chronic) Tobacco dependence in remission (Chronic) History of cervical cancer (Chronic) History of coronary artery bypass graft (Chronic) Carotid stenosis, bilateral (Chronic) both ICA's are 100% occluded Low HDL (under 40) (Chronic) Glaucoma (Chronic) Hospital Course and Treatment Imaging Results: Laboratory Tests 03/20/19 03/19/19 03/19/19 Range/Units 06:39 23:52 16:34 WBC (4.4-11.0) K/mm3 RBC (4.2-5.4) M/mm3 Hgb (12.0-15.0) g/dL Hct (37-47) % MCV (81-99) fL MCH (27.0-32.0) pg MCHC (32-36) g/dL RDW Std Deviation (35.1-43.9) fl RDW Coeff of Aruna (11.6-14.6) % Plt Count (150-450) K/mm3 MPV (6.2-12.0) fl Sodium (136-145) mmol/L Potassium (3.5-5.1) mmol/L Chloride (98-107) mmol/L Carbon Dioxide (21.0-32.0) mmol/L Anion Gap (5-15) BUN (7-18) mg/dL Creatinine (0.55-1.02) mg/dL Estim Creat Clear Calc ml/min Est GFR (MDRD) Af Amer (>60) mL/min Est GFR (MDRD) Non-Af (>60) mL/min BUN/Creatinine Ratio (10-20) RATIO Glucose (74-106) mg/dL Hemoglobin A1c (4.2-6.3) % Calcium (8.5-10.1) mg/dL Total Bilirubin (0.20-1.00) mg/dL AST (15-37) U/L ALT (13-56) U/L Alkaline Phosphatase (45-117) U/L Total Protein (6.4-8.2) g/dL Albumin (3.2-5.0) g/dL Globulin (2.2-4.2) g/dL Albumin/Globulin Ratio (0.9-2.4) RATIO POC Glucose 145 H 122 H 125 H (70-110) mg/dL 03/19/19 03/19/19 03/18/19 Range/Units 11:55 06:44 21:12 WBC (4.4-11.0) K/mm3 RBC (4.2-5.4) M/mm3 Hgb (12.0-15.0) g/dL Hct (37-47) % MCV (81-99) fL MCH (27.0-32.0) pg MCHC (32-36) g/dL RDW Std Deviation (35.1-43.9) fl RDW Coeff of Aruna (11.6-14.6) % Plt Count (150-450) K/mm3 MPV (6.2-12.0) fl Sodium (136-145) mmol/L Potassium (3.5-5.1) mmol/L Chloride (98-107) mmol/L Carbon Dioxide (21.0-32.0) mmol/L Anion Gap (5-15) BUN (7-18) mg/dL Creatinine (0.55-1.02) mg/dL Estim Creat Clear Calc ml/min Est GFR (MDRD) Af Amer (>60) mL/min Est GFR (MDRD) Non-Af (>60) mL/min BUN/Creatinine Ratio (10-20) RATIO Glucose (74-106) mg/dL Hemoglobin A1c (4.2-6.3) % Calcium (8.5-10.1) mg/dL Total Bilirubin (0.20-1.00) mg/dL AST (15-37) U/L ALT (13-56) U/L Alkaline Phosphatase (45-117) U/L Total Protein (6.4-8.2) g/dL Albumin (3.2-5.0) g/dL Globulin (2.2-4.2) g/dL Albumin/Globulin Ratio (0.9-2.4) RATIO POC Glucose 102 133 H 132 H (70-110) mg/dL 03/18/19 03/18/19 03/18/19 Range/Units 16:58 12:04 06:12 WBC (4.4-11.0) K/mm3 RBC (4.2-5.4) M/mm3 Hgb (12.0-15.0) g/dL Hct (37-47) % MCV (81-99) fL MCH (27.0-32.0) pg MCHC (32-36) g/dL RDW Std Deviation (35.1-43.9) fl RDW Coeff of Aruna (11.6-14.6) % Plt Count (150-450) K/mm3 MPV (6.2-12.0) fl Sodium (136-145) mmol/L Potassium (3.5-5.1) mmol/L Chloride (98-107) mmol/L Carbon Dioxide (21.0-32.0) mmol/L Anion Gap (5-15) BUN (7-18) mg/dL Creatinine (0.55-1.02) mg/dL Estim Creat Clear Calc ml/min Est GFR (MDRD) Af Amer (>60) mL/min Est GFR (MDRD) Non-Af (>60) mL/min BUN/Creatinine Ratio (10-20) RATIO Glucose (74-106) mg/dL Hemoglobin A1c (4.2-6.3) % Calcium (8.5-10.1) mg/dL Total Bilirubin (0.20-1.00) mg/dL AST (15-37) U/L ALT (13-56) U/L Alkaline Phosphatase (45-117) U/L Total Protein (6.4-8.2) g/dL Albumin (3.2-5.0) g/dL Globulin (2.2-4.2) g/dL Albumin/Globulin Ratio (0.9-2.4) RATIO POC Glucose 104 107 139 H (70-110) mg/dL 03/17/19 03/17/19 03/17/19 Range/Units 21:21 16:33 11:52 WBC (4.4-11.0) K/mm3 RBC (4.2-5.4) M/mm3 Hgb (12.0-15.0) g/dL Hct (37-47) % MCV (81-99) fL MCH (27.0-32.0) pg MCHC (32-36) g/dL RDW Std Deviation (35.1-43.9) fl RDW Coeff of Aruna (11.6-14.6) % Plt Count (150-450) K/mm3 MPV (6.2-12.0) fl Sodium (136-145) mmol/L Potassium (3.5-5.1) mmol/L Chloride (98-107) mmol/L Carbon Dioxide (21.0-32.0) mmol/L Anion Gap (5-15) BUN (7-18) mg/dL Creatinine (0.55-1.02) mg/dL Estim Creat Clear Calc ml/min Est GFR (MDRD) Af Amer (>60) mL/min Est GFR (MDRD) Non-Af (>60) mL/min BUN/Creatinine Ratio (10-20) RATIO Glucose (74-106) mg/dL Hemoglobin A1c (4.2-6.3) % Calcium (8.5-10.1) mg/dL Total Bilirubin (0.20-1.00) mg/dL AST (15-37) U/L ALT (13-56) U/L Alkaline Phosphatase (45-117) U/L Total Protein (6.4-8.2) g/dL Albumin (3.2-5.0) g/dL Globulin (2.2-4.2) g/dL Albumin/Globulin Ratio (0.9-2.4) RATIO POC Glucose 133 H 113 H 98 (70-110) mg/dL 03/17/19 03/16/19 03/16/19 Range/Units 06:52 21:29 16:29 WBC (4.4-11.0) K/mm3 RBC (4.2-5.4) M/mm3 Hgb (12.0-15.0) g/dL Hct (37-47) % MCV (81-99) fL MCH (27.0-32.0) pg MCHC (32-36) g/dL RDW Std Deviation (35.1-43.9) fl RDW Coeff of Aruna (11.6-14.6) % Plt Count (150-450) K/mm3 MPV (6.2-12.0) fl Sodium (136-145) mmol/L Potassium (3.5-5.1) mmol/L Chloride (98-107) mmol/L Carbon Dioxide (21.0-32.0) mmol/L Anion Gap (5-15) BUN (7-18) mg/dL Creatinine (0.55-1.02) mg/dL Estim Creat Clear Calc ml/min Est GFR (MDRD) Af Amer (>60) mL/min Est GFR (MDRD) Non-Af (>60) mL/min BUN/Creatinine Ratio (10-20) RATIO Glucose (74-106) mg/dL Hemoglobin A1c (4.2-6.3) % Calcium (8.5-10.1) mg/dL Total Bilirubin (0.20-1.00) mg/dL AST (15-37) U/L ALT (13-56) U/L Alkaline Phosphatase (45-117) U/L Total Protein (6.4-8.2) g/dL Albumin (3.2-5.0) g/dL Globulin (2.2-4.2) g/dL Albumin/Globulin Ratio (0.9-2.4) RATIO POC Glucose 122 H 115 H 112 H (70-110) mg/dL 03/16/19 03/16/19 03/15/19 Range/Units 11:46 06:55 21:41 WBC (4.4-11.0) K/mm3 RBC (4.2-5.4) M/mm3 Hgb (12.0-15.0) g/dL Hct (37-47) % MCV (81-99) fL MCH (27.0-32.0) pg MCHC (32-36) g/dL RDW Std Deviation (35.1-43.9) fl RDW Coeff of Aruna (11.6-14.6) % Plt Count (150-450) K/mm3 MPV (6.2-12.0) fl Sodium (136-145) mmol/L Potassium (3.5-5.1) mmol/L Chloride (98-107) mmol/L Carbon Dioxide (21.0-32.0) mmol/L Anion Gap (5-15) BUN (7-18) mg/dL Creatinine (0.55-1.02) mg/dL Estim Creat Clear Calc ml/min Est GFR (MDRD) Af Amer (>60) mL/min Est GFR (MDRD) Non-Af (>60) mL/min BUN/Creatinine Ratio (10-20) RATIO Glucose (74-106) mg/dL Hemoglobin A1c (4.2-6.3) % Calcium (8.5-10.1) mg/dL Total Bilirubin (0.20-1.00) mg/dL AST (15-37) U/L ALT (13-56) U/L Alkaline Phosphatase (45-117) U/L Total Protein (6.4-8.2) g/dL Albumin (3.2-5.0) g/dL Globulin (2.2-4.2) g/dL Albumin/Globulin Ratio (0.9-2.4) RATIO POC Glucose 114 H 119 H 122 H (70-110) mg/dL 03/15/19 03/15/19 03/15/19 Range/Units 17:01 12:04 06:38 WBC (4.4-11.0) K/mm3 RBC (4.2-5.4) M/mm3 Hgb (12.0-15.0) g/dL Hct (37-47) % MCV (81-99) fL MCH (27.0-32.0) pg MCHC (32-36) g/dL RDW Std Deviation (35.1-43.9) fl RDW Coeff of Aruna (11.6-14.6) % Plt Count (150-450) K/mm3 MPV (6.2-12.0) fl Sodium (136-145) mmol/L Potassium (3.5-5.1) mmol/L Chloride (98-107) mmol/L Carbon Dioxide (21.0-32.0) mmol/L Anion Gap (5-15) BUN (7-18) mg/dL Creatinine (0.55-1.02) mg/dL Estim Creat Clear Calc ml/min Est GFR (MDRD) Af Amer (>60) mL/min Est GFR (MDRD) Non-Af (>60) mL/min BUN/Creatinine Ratio (10-20) RATIO Glucose (74-106) mg/dL Hemoglobin A1c (4.2-6.3) % Calcium (8.5-10.1) mg/dL Total Bilirubin (0.20-1.00) mg/dL AST (15-37) U/L ALT (13-56) U/L Alkaline Phosphatase (45-117) U/L Total Protein (6.4-8.2) g/dL Albumin (3.2-5.0) g/dL Globulin (2.2-4.2) g/dL Albumin/Globulin Ratio (0.9-2.4) RATIO POC Glucose 114 H 96 120 H (70-110) mg/dL 03/14/19 03/14/19 03/14/19 Range/Units 20:59 16:47 12:04 WBC (4.4-11.0) K/mm3 RBC (4.2-5.4) M/mm3 Hgb (12.0-15.0) g/dL Hct (37-47) % MCV (81-99) fL MCH (27.0-32.0) pg MCHC (32-36) g/dL RDW Std Deviation (35.1-43.9) fl RDW Coeff of Rauna (11.6-14.6) % Plt Count (150-450) K/mm3 MPV (6.2-12.0) fl Sodium (136-145) mmol/L Potassium (3.5-5.1) mmol/L Chloride (98-107) mmol/L Carbon Dioxide (21.0-32.0) mmol/L Anion Gap (5-15) BUN (7-18) mg/dL Creatinine (0.55-1.02) mg/dL Estim Creat Clear Calc ml/min Est GFR (MDRD) Af Amer (>60) mL/min Est GFR (MDRD) Non-Af (>60) mL/min BUN/Creatinine Ratio (10-20) RATIO Glucose (74-106) mg/dL Hemoglobin A1c (4.2-6.3) % Calcium (8.5-10.1) mg/dL Total Bilirubin (0.20-1.00) mg/dL AST (15-37) U/L ALT (13-56) U/L Alkaline Phosphatase (45-117) U/L Total Protein (6.4-8.2) g/dL Albumin (3.2-5.0) g/dL Globulin (2.2-4.2) g/dL Albumin/Globulin Ratio (0.9-2.4) RATIO POC Glucose 111 H 128 H 129 H (70-110) mg/dL 03/14/19 03/14/19 03/14/19 Range/Units 06:19 05:44 05:44 WBC (4.4-11.0) K/mm3 RBC (4.2-5.4) M/mm3 Hgb (12.0-15.0) g/dL Hct (37-47) % MCV (81-99) fL MCH (27.0-32.0) pg MCHC (32-36) g/dL RDW Std Deviation (35.1-43.9) fl RDW Coeff of Aruna (11.6-14.6) % Plt Count (150-450) K/mm3 MPV (6.2-12.0) fl Sodium 140 (136-145) mmol/L Potassium 3.5 (3.5-5.1) mmol/L Chloride 108 H (98-107) mmol/L Carbon Dioxide 26.0 (21.0-32.0) mmol/L Anion Gap 6 (5-15) BUN 14 (7-18) mg/dL Creatinine 0.83 (0.55-1.02) mg/dL Estim Creat Clear Calc 58.17 ml/min Est GFR (MDRD) Af Amer 86 (>60) mL/min Est GFR (MDRD) Non-Af 71 (>60) mL/min BUN/Creatinine Ratio 16.9 (10-20) RATIO Glucose 121 H (74-106) mg/dL Hemoglobin A1c 5.4 (4.2-6.3) % Calcium 8.6 (8.5-10.1) mg/dL Total Bilirubin 0.70 (0.20-1.00) mg/dL AST 18 (15-37) U/L ALT 19 (13-56) U/L Alkaline Phosphatase 48 (45-117) U/L Total Protein 6.8 (6.4-8.2) g/dL Albumin 3.4 (3.2-5.0) g/dL Globulin 3.4 (2.2-4.2) g/dL Albumin/Globulin Ratio 1.0 (0.9-2.4) RATIO POC Glucose 118 H (70-110) mg/dL 03/14/19 03/13/19 Range/Units 05:44 21:08 WBC 6.7 (4.4-11.0) K/mm3 RBC 3.97 L (4.2-5.4) M/mm3 Hgb 12.6 (12.0-15.0) g/dL Hct 36.2 L (37-47) % MCV 91.2 (81-99) fL MCH 31.7 (27.0-32.0) pg MCHC 34.8 (32-36) g/dL RDW Std Deviation 40.2 (35.1-43.9) fl RDW Coeff of Aruna 12.2 (11.6-14.6) % Plt Count 175 (150-450) K/mm3 MPV 9.9 (6.2-12.0) fl Sodium (136-145) mmol/L Potassium (3.5-5.1) mmol/L Chloride (98-107) mmol/L Carbon Dioxide (21.0-32.0) mmol/L Anion Gap (5-15) BUN (7-18) mg/dL Creatinine (0.55-1.02) mg/dL Estim Creat Clear Calc ml/min Est GFR (MDRD) Af Amer (>60) mL/min Est GFR (MDRD) Non-Af (>60) mL/min BUN/Creatinine Ratio (10-20) RATIO Glucose (74-106) mg/dL Hemoglobin A1c (4.2-6.3) % Calcium (8.5-10.1) mg/dL Total Bilirubin (0.20-1.00) mg/dL AST (15-37) U/L ALT (13-56) U/L Alkaline Phosphatase (45-117) U/L Total Protein (6.4-8.2) g/dL Albumin (3.2-5.0) g/dL Globulin (2.2-4.2) g/dL Albumin/Globulin Ratio (0.9-2.4) RATIO POC Glucose 118 H (70-110) mg/dL none Operations: None Procedures: None Summary of Care Provided: The patient is a 78 year old F with a PMH of DM II, dyslipidemia, CAD, hx of CABG, tobacco dependence in remission, glaucoma? (on no medications), history of cervical cancer, low HDL and 100% bilateral internal carotid artery stenosis who presented to the emergency department at [facility] on 03/10/2019 with aphasia and R lower face droop. Stat CT brain showed dense left middle cerebral artery possibly indicating very early sign of acute CVA in the MCA distribution. There was no intracranial hemorrhage. STAT consult was obtained with neurology at [facility] and the patient was administered TPA. She was then transferred to [facility] for ongoing care. MRI at [facility] showed nonhemorrhagic acute-subacute left MCA territory infarcts. She was started on aspirin 81 mg daily for antithrombotic therapy. Lipid panel showed normal triglycerides, low HDL at 31 and an LDL of 68. Anticoagulation therapy was not indicated. CTA showed 100% occlusion of both internal carotid arteries with collateral circulation. Over the course of her stay at [facility] her symptoms largely improved and her NIH score on 03/13/2019 was 4. She was transferred to the IPRU at [facility] on 03/13/19 for 3 hours of therapy daily with a goal of returning home at or near her prior level of independence/function. Lab drawn at [facility] at admission showed a HGBA1C of only 5.4. She admitted to having frequent episodes of lightheadedness, nausea, diaphoresis and weakness at home. At admission she was kept on Glucophage 850 mg BID but, she was having BS's less than 100 and The dose was then decreased to 500 mg BID. She did very well with PT/OT and ST and was ready for DC on 03/20/19. Her family was present at the TEAM meeting. We reinforced the need to eat 3 meals a day and not skip meals. She was instructed in the symptoms of hypoglycemia and what to do if she has a low blood sugar. She and her family were instructed by the racing board marker on the day of DC on a healthy diet and she also reinforced the need to have 3 meals a day. She was discharged home on 03/20/19 and will follow up with Speech Therapy at [facility] for ongoing therapy. She will follow up with Dr. Puga in 1 week and will also follow up with Dr. Reed thurston and Dr. Rob Kennedy. She was provided with a prescription for a glucometer, Test strips, lancets and alcohol wipes at discharge and she will check her blood sugars BID, before breakfast and before supper. She was also given a prescription for Metformin 500 mg and will take 1 tablet BID. PHYSICAL EXAM: GENERAL: alert, oriented X 3, Cooperative, NAD ORAL: moist mucosa, no mucosal lesions NECK: No JVD, supple, trachea midline, BL soft carotid bruits LUNGS: CTA, symmetric chest expansion HEART: RRR, Normal S1 and S2, no rub, no gallop ABDOMEN: soft, NT, ND, BS present, no guarding with palpation EXTREMITIES: no edema, no cyanosis, no calf tenderness SKIN: No rashes, no breakdown NEUROLOGIC: Cranial nerves II through XII are grossly intact, no facial droop any longer. Strength is 5/5 in all extremities. She has expressive aphasia. PSYCH: appropriate, normal affect, pleasant This note was generated with [employer] dictation software. It may contain incorrect words, spelling, and punctuation that were not noted in checking the note before signing. Patient Problems: Active and Suspected Problems Aphasia due to acute cerebrovascular accident (CVA) (Acute) CVA (cerebral vascular accident) (Acute) Left MCA territory ischemic infarcts 03/10/19 Debility (Acute) - Physical Exam Vitals/I&O's: Vital Signs Temp Pulse Resp BP Pulse Ox 98.3 F 88 16 152/75 H 93 03/20/19 07:00 03/20/19 07:00 03/20/19 07:00 03/20/19 07:00 03/20/19 07:00 Oxygen Delivery Method Room Air Weight: 186 lb 4.65 oz Body Mass Index (BMI) 29.1 Finger Stick Blood Glucose 125 Intake and Output for Last 24 Hours 03/18/19 03/19/19 03/20/19 23:59 23:59 23:59 Intake Total 960 / 960 240 / 240 260 / 260 Balance 960 / 960 240 / 240 260 / 260 Laboratory Results 03/19/19 11:55: POC Glucose 102 03/19/19 16:34: POC Glucose 125 H 03/19/19 23:52: POC Glucose 122 H 03/20/19 06:39: POC Glucose 145 H Current Medications Acetaminophen (Tylenol) 650 mg PO Q6H PRN PRN PRN Reason: Pain Score 1-10/10 /Headache Aspirin (Aspirin, Baby) 81 mg PO DAILY@0800 [facility] Last Admin: 03/20/19 08:10 Dose: 81 mg Documented by: Atorvastatin Calcium (Lipitor) 10 mg PO QHS [facility] Last Admin: 03/19/19 19:51 Dose: 10 mg Documented by: Bisacodyl (Dulcolax) 10 mg RECTAL .PRN X 1 PRN PRN Reason: Constipation Enoxaparin Sodium (Lovenox) 40 mg SC DAILY@0600 [facility] Last Admin: 03/20/19 06:31 Dose: 40 mg Documented by: Fluoxetine HCl (Prozac) 20 mg PO DAILY [facility] Last Admin: 03/20/19 08:09 Dose: 20 mg Documented by: Lisinopril (Zestril) 5 mg PO DAILY [facility] Last Admin: 03/20/19 08:09 Dose: 5 mg Documented by: Lorazepam (Ativan) 0.5 mg PO QHS PRN PRN PRN Reason: Insomnia Magnesium Hydroxide (Milk Of Magnesia) 30 ml PO .PRN X 1 PRN PRN Reason: Constipation Metformin HCl (Glucophage) 500 mg PO BIDAC [facility] Last Admin: 03/20/19 06:36 Dose: 500 mg Documented by: Pantoprazole Sodium (Protonix) 20 mg PO DAILY [facility] Last Admin: 03/20/19 08:10 Dose: 20 mg Documented by: Senna/Docusate Sodium (Senokot-S, Lorena-Colace) 2 tablet PO BID [facility] Last Admin: 03/20/19 08:10 Dose: Not Given Documented by: Discharge Activity: Return to Normal Activity Weight Bearing Status: Full weight bearing Call your doctor if you observe: Fever of 101 or Higher, Inability to urinate, Shortness of breath, Dizziness, Fainting spells, Swelling in the ankles, Chest pain, Increased palpitations (irregular heartbeat), Calf discomfort Home Medications: Medications to take at Discharge Atenolol [Tenormin (beta carmelo)] 25 mg PO DAILY 03/13/19 Atorvastatin Calcium [Lipitor] 10 mg PO QHS 03/13/19 Fluoxetine HCl 20 mg PO DAILY 03/13/19 Lisinopril 5 mg PO DAILY 03/13/19 Pantoprazole Sodium [Protonix] 20 mg PO DAILY 03/13/19 Aspirin [Aspirin, Baby] 81 mg PO DAILY@0800 tab.chew 03/20/19 metFORMIN HCl [Glucophage] 500 mg PO BIDAC #60 tablet 03/20/19 Following Prescrptions Were Given to Patient: metFORMIN HCl [Glucophage] 500 mg PO BIDAC #60 tablet Other Amb Orders: Glucometer Location: None Selected Speech Therapy Evaluation Location: None Selected Primary Care Physician: Saurabh Puga MD [Primary Care Provider] - Please follow up with your Primary Care Physician in: 1 week Please Follow Up With: Dr Kennedy Please Follow Up With: Dr Reed Thurston When: Call to make appointment Patient Instructions: Hypoglycemia (Low Blood Sugar) Disposition: Home Minutes spent on discharge:: 45 Patient Condition:: Good Medical Necessity - Tobacco Use Smoking Status: Former smoker - smoked cigarettes - quit 30 years prior to admission the the IPRU Tobacco Use: Non-smoker Meaningful Use Info Meaningful Use Diagnoses (Choose all that apply): Ischemic CVA - CVA Therapy Assessed for PT,OT and/or ST?: Yes - Ischemic Stroke Antithrombotic order at d/c?: Yes Dx of Atrial fib/flutter?: No Anticoagulant at discharge?: No Reason anticoagulant not ordered: Treatment not Indicated Statins at discharge?: Yes Primary Dx Acute Ischemic CVA?: Yes IV tPA ordered during stay?: No Reason IV t-PA not ordered: Treatment not Indicated - she received TPA at the time of the initial stroke and then tranferred to [facility] for follow up. No TPA indicated while in IPRU. Code Visit Inpatient E&M: 18565 Disch Hosp
--- NOTE | 2019-03-20 11:49 | CASEMGMT ---
Social Work IDT met with patient and family for Team Meeting. Discussed patient's progress in therapy. Pt is walking independently on multiple surfaces, completing 13 steps, independent with all ADLs, has good safety awareness.Pt needs some cues with higher level tasks. Pt still having difficulty with speech - pt knows what to say, but cannot always accurately express that. Pt requesting to DC home on this date. IDT agreeable. Referral made to [facility]. No DME needs. [facility]
[2019-03-20 12:11] LABS: Bedside Glucose 146 mg/dL (70-110)
[2019-03-20 12:17] VITALS: BMI 29.1
[2019-03-20 12:21] VITALS: BP 152/75; PULSE 88; RESP 16; TEMP 36.8; O2SAT 93
--- NOTE | 2019-03-20 12:24 | NURSING ---
discharged home with family. discharged instructions and medications reviewed with pt and family, denies question or concerns
== END 2019-03-20 12:20 | disposition home or self-care (01) | DRG 57 ==
PROVIDERS: Admitting Provider Internal Medicine; Family Provider Family Medicine; PCP Family Medicine; Referring Provider Internal Medicine; Visit Provider Internal Medicine
DX: I69.320 Aphasia following cerebral infarction (principal); Z95.1 Presence of aortocoronary bypass graft; I25.10 Atherosclerotic heart disease of native coronary artery without angina pectoris; E78.5 Hyperlipidemia, unspecified; E11.9 Type 2 diabetes mellitus without complications; I69.392 Facial weakness following cerebral infarction; Z87.891 Personal history of nicotine dependence; I10 Essential (primary) hypertension; F32.9 Major depressive disorder, single episode, unspecified
CPT/HCPCS: 36415; 51702; 70450; 80048; 80053; 82962; 83036; 84484; 85025; 85027; 85610; 85730; 92507; 92523; 93005; 96365; 96376; 97110; 97116; 97127; 97162; 97166; 97530; 97535; 97802; 97803; 99285; J2997; J7030; A4216; G0515

== ENCOUNTER 2019-06-10 10:00 | Outpatient (RCR) | payer MEDICARE, OTHER, SELFPAY ==
--- NOTE | 2019-04-11 10:54 | HP.SP.AD_ITS ---
History - History Date of Eval: 04/08/19 Medical Diagnosis (from RX): Aphasia Date of Onset of Diagnosis: 03/10/19 Previous speech therapy: Yes Results: One week at [facility] inpatient rehab with good progress. Other Relevant Medical History/Diagnoses/Surgery: DM II, dyslipidemia, CAD, hx of CABG, tobacco dependence in remission, glaucoma? (on no medications), history of cervical cancer. She presented to the emergency department at [facility] on 03/10/2019 with aphasia and R lower face droop. Stat CT brain showed dense left middle cerebral artery possibly indicating very early si gn of acute CVA in the MCA distribution. She was then transferred to [facility] for ongoing care. MRI at [facility] showed nonhemorrhagic acute-subacute left MCA territory infarcts. [facility] inpatient rehab started on 03/13/19 and discharged home on 03/20/19. Smoking Status: Former smoker Hx Smoking: No Hx Smoking Cessation Date: 03/13/07 Hx Tobacco Use: No Hx Smoking Exposure: No - Pain Is pain an issue with your current prescribed condition?: No - Personal Occupation: Retired Right Hearing Abillity: Hard of Hearing Left Hearing Abillity: Hard of Hearing Visual Assistive Devices: Glasses Patients Living Arrangements: With Significant Other Patient Allergies - Allergies Allergies No Known Allergies Allergy (Verified 03/10/19 01:08) Objective Cog/Ling/Com - Test Administered Jxhbbovkb-Vbqoqonyfg-Oqweqfzgsopzy Assessment Administered: Yes Riuggnygb-Ffrbyyrabi-Yevniadopcpkt Assessment: Cognitive ? Linguistic skills were evaluated using patient/family interview, skilled observation and informal evaluation through tasks completed by the patient. - Orientation Orientation: Person, Place, Day - Answer Yes/No Questions Simple: WNL Complex: Mild - Follows Commands 1 Step: WFL 2 Step: WFL Complex: Moderate - Automatic Sequences Automatic Sequences: Moderate - Repetition Words: WNL Sentences: WNL - Naming Responsive naming: Moderate Naming in categories: Moderate - Conversational Tasks Conversational Tasks: Moderate Comments: She can intermittently can use up to 7-8 words but 90% of utterances have errors. ( example I have no idea). Noted word subsitutions as well as anomia. Often her sentences lack content words. - Comments Comments: Christen was unable to tell the names of her children or write them. [place] language has been affected as well - Reading Picture-Word Matching Picture-Word matching: Moderate - Reading Comprehension Words: Moderate - Oral Reading Words: WNL Sentences: Moderate Comments: She was able to read full sentences but slowly for short sentences but longer sentences were difficult. Cognitive Linguistic Comments - Comments Expressive Langauge Patient often had difficulty in saying words but was able to spell them. She called a phone a pencil ( perseverated ) but then spelled [id number]. Plan - Plan Plan: Speech therapy is warranted for significant expressive aphasia and mild receptive asphasia characterized deficits in communication with all listeners. - Recommendations Treatment Warranted: Yes - Frequency Frequency: 1x/Week Duration: 3 Months Visits in this POC: 12 - Prognosis Prognosis: Good - Goals that are Established: Determination:: Goals will be added/modified as deemed necessary and appropriate. Therapy will be discontinued when results of re-evaluation indicate therapy is no longer needed or lack of progress has been documented. - Goal #1-5 Goal #1: Christen will answer complex yes/no questions with 80% accuracy. Goal #2: Christen will verbalize personal information including but not limited to family members and on 4/5 trials on 2/3 consecutive sessions. Goal #3: Christen will name common objects with less than 2 cues per session on 4/5 trials on 2/3 consecutive sessions. Education - Patient has Indicated that the Following Identified Educational Needs: Hearing/Vision/Speech Impaired - Patient Instruction Patient Education: Diagnosis, Treatment Plan, Goals Person Taught: Patient Teaching Method: Discussion Response to teaching: Verbalize understanding, Has Prior Knowledge
--- NOTE | 2019-06-13 12:18 | HP.SP.DC ---
ST Discharge Summary - Discharged: Discharge: Christen Del Toro is discharged from [facility] speech therapy as of June 10, 2019 as she no longer needs skilled speech therapy. 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 She attended seven therapy visits following her initial evaluation and made excellent progress. Her goals focused on answering complex questions, anomia, and providing personal information fluently. She progressed with accuracy to [facility] on complex yes/no questions, she was able to label all common objects during responsive naming as well as provide personal details fluently. The final focus of therapy was on fluent conversation and during her last session she had only had two word finding deficits that stopped the conversation. All others were hesitations that she was able to work through to continue the conversation. No further skilled speech therapy warranted. A copy of this discharge summary will be sent to her referring physician.
== END 2019-06-10 19:00 | disposition home or self-care (01) ==
LOC: SP 10:00
PROVIDERS: Family Provider Family Medicine; PCP Family Medicine; Visit Provider Family Medicine
DX: R47.01 Aphasia (principal); Z86.73 Personal history of transient ischemic attack (TIA), and cerebral infarction without residual deficits
CPT/HCPCS: 92507; 92523